=== PATIENT | female | born 1985 | race Hispanic/Latino ===

== ENCOUNTER 2019-11-25 21:24 | Observation (INO) | payer OTHER ==
[2019-11-25 23:26] LABS: #Lymphocytes 1.4 thou/uL (1.20-3.40); #Monocytes 0.4 thou/uL (0.11-0.59); #Neutrophils 6.9 thou/uL (1.40-6.50); %Eosinophils 0.2 % (0.0-10.0); %Lymphocytes 16.4 % (21.0-51.0); %Monocytes 4.3 % (0.0-10.0); Hemoglobin 12.9 g/dL (12.0-16.0); Mean Corpuscular HGB CONC 32.2 g/dL (32.0-36.0); Mean Corpuscular Hemoglobin 28.1 pg (27.0-31.0); Mean Corpuscular Volume 87.3 fL (78.0-98.0); Mean Platelet Volume 7.6 fL (7.4-10.4); Platelet Count 257 thou/uL (130-400); RBC Distribution Width 12.4 % (11.5-14.5); White Blood Cell (WBC) Count 8.7 thou/uL (4.8-10.8)
[2019-11-25 23:47] LABS: ALT (SGPT) 12 U/L (8-55); AST (SGOT) 13 U/L (5-34); Albumin 4.1 g/dL (3.5-5.0); Alkaline Phosphatase 55 U/L (40-110); Anion Gap 12 mmol/L (10-20); BUN (Urea Nitrogen) 11 mg/dL (7.0-18.7); Bilirubin, Total 0.3 mg/dL (0.2-1.2); Calc. Creatinine Clearance 0 mL/min (70-130); Calcium 9.9 mg/dL (7.8-10.44); Carbon Dioxide 25 mmol/L (22-29); Chloride 104 mmol/L (98-107); Estimated GFR-MDRD Greater than 90; Glucose 115 mg/dL (70-105); Potassium 4.2 mmol/L (3.5-5.1); Protein, Total 7.1 g/dL (6.0-8.3); Sodium 137 mmol/L (136-145)
[2019-11-25] MEDS ORDERED: Magnesium 2 GM/50 ML BAG (IN WATER) ONE (23:52)
[2019-11-25] MEDS ORDERED: Metoclopramide HCl 10 MG/2 ML VIAL ONE (23:53)
[2019-11-25] MEDS ORDERED: Ketorolac Tromethamine 30 MG/ML VIAL ONE (23:53)
[2019-11-25] MEDS ORDERED: diphenhydrAMINE 50 MG/ML VIAL ONE (23:53)
[2019-11-25] MEDS ORDERED: Dexamethasone 10 MG/ML VIAL ONE (23:57)
--- NOTE | 2019-11-26 00:29 | CT ---
CT HEAD WITHOUT CONTRAST: Date: 11/25/2019 INDICATION: Headache. COMPARISON: CT head of 04/15/2019. FINDINGS: Ventricles have normal size and position. No evidence of intracranial hemorrhage. No evidence of mass or edema. Sinuses and mastoids are well aerated and clear. IMPRESSION: No acute abnormality identified. POS: AGW
[2019-11-26 01:27] VITALS: BMI 38.1
[2019-11-26] MEDS ORDERED: Ondansetron ODT 4 MG TAB SL PRN (01:27)
[2019-11-26] MEDS ORDERED: Ondansetron PF 4 MG/2 ML Vial IVP PRN (01:27)
[2019-11-26] MEDS ORDERED: Senokot S 8.6-50 MG TAB PO PRN (01:31)
[2019-11-26] MEDS ORDERED: Acetaminophen 325 MG TAB PO PRN (01:31)
[2019-11-26] MEDS: Sodium Chloride 0.9% 1,000 ML IV SCH ×2 (01:50→10:59)
[2019-11-26] MEDS ORDERED: tiZANidine HCl 4 MG TAB PO PRN (02:16)
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
[2019-11-26 04:58] LABS: #Lymphocytes 0.6 thou/uL (1.20-3.40); #Monocytes 0.1 thou/uL (0.11-0.59); #Neutrophils 6.1 thou/uL (1.40-6.50); %Eosinophils 0.1 % (0.0-10.0); %Lymphocytes 9.1 % (21.0-51.0); %Monocytes 1.1 % (0.0-10.0); %Neutrophils 89.8 % (42.0-75.0); Hemoglobin 11.9 g/dL (12.0-16.0); Mean Corpuscular HGB CONC 31.9 g/dL (32.0-36.0); Mean Corpuscular Hemoglobin 27.5 pg (27.0-31.0); Mean Corpuscular Volume 86.1 fL (78.0-98.0); Mean Platelet Volume 7.8 fL (7.4-10.4); Platelet Count 237 thou/uL (130-400); RBC Distribution Width 12.4 % (11.5-14.5); Red Blood Cell (RBC) Count 4.31 mill/uL (4.20-5.40); White Blood Cell (WBC) Count 6.8 thou/uL (4.8-10.8)
[2019-11-26 05:16] LABS: Anion Gap 11 mmol/L (10-20); BUN (Urea Nitrogen) 9 mg/dL (7.0-18.7); Calc. Creatinine Clearance 190 mL/min (70-130); Calcium 8.8 mg/dL (7.8-10.44); Carbon Dioxide 23 mmol/L (22-29); Chloride 105 mmol/L (98-107); Estimated GFR-MDRD Greater than 90; Glucose 167 mg/dL (70-105); Potassium 4.5 mmol/L (3.5-5.1); Sodium 134 mmol/L (136-145)
[2019-11-26] MEDS ORDERED: Ketorolac Tromethamine 30 MG/ML VIAL IVP PRN (06:00)
[2019-11-26] MEDS ORDERED: Famotidine 20 MG TAB PO SCH (09:00)
[2019-11-26] MEDS: Aspirin/APAP/Caffeine Tab (Excedrin Migraine) PO PRN ×2 (10:57→16:13)
[2019-11-26 12:11] VITALS: TEMP 98.5
[2019-11-26 16:14] VITALS: BP 133/88
--- NOTE | 2019-11-27 00:54 | DIS ---
DATE OF ADMISSION: 11/26/2019 DATE OF DISCHARGE: 11/26/2019 HOSPITAL COURSE: Ms. Novak is a 34-year-old female with a medical history of chronic back pain, status post epidural injection, who presents with acute headache. She was diagnosed with post dural puncture headache. The patient was evaluated by Anesthesiology and was informed that an additional blood patch would not be indicated at this point. The patient was started on Excedrin and her headache improved. She was able to sit and walk with minimal headache. She was discharged hemodynamically stable and complaining of only minimal headache. Follow up appointments with her primary care physician and Pain Management. The patient was informed that her blood glucose levels were elevated as inpatient, follow up with her primary care physician regarding workup of hyperglycemia. PHYSICAL EXAMINATION: VITAL SIGNS: Blood pressure 125/78, pulse 77, respiratory rate 16, oxygen saturation 99% on room air, and temperature 98.5 Fahrenheit. GENERAL: Lying comfortably in bed, alert. HEENT: Normocephalic and atraumatic. EOMI. PERRL. CARDIAC: Regular rate and rhythm. No murmurs, gallops, or rubs. LUNGS: Clear to auscultation bilaterally. No wheezing, rales, or rhonchi. ABDOMEN: Nontender and nondistended. Normal bowel sounds. EXTREMITIES: No edema. Strength 5/5 throughout upper and lower extremities. Sensation grossly intact. Cranial nerves grossly intact. PSYCHIATRIC: Proper mood and affect. Alert and oriented x3. MEDICATION LIST: New medications, Excedrin one tablet t.i.d. p.r.n. headaches. Old medications, no old medications. Modified medications, no modified medications. Discontinued medications, no discontinued medications. Job ID: [id number]
== END 2019-11-26 17:11 | disposition home or self-care (01) ==
LOC: ERS 21:24 → 2SE 11-26 00:28
PROVIDERS: ADMIT Family Medicine; ATTEND Family Medicine
DX: R51 Headache (principal); M50.20 Other cervical disc displacement, unspecified cervical region; M51.26 Other intervertebral disc displacement, lumbar region; Z88.0 Allergy status to penicillin
CPT/HCPCS: 36415; 70450; 80048; 80053; 85025; 96361; 96365; 96375; G0378; J1100; J1200; J1885; J2765; J3475

== ENCOUNTER 2021-08-08 15:46 | Outpatient (CLI) | payer OTHER | END 2021-08-08 15:47 | disposition home or self-care (01) | LOC: ULT 15:46 | PROVIDERS: ATTEND Internal Medicine Nephrology | DX: N18.1 Chronic kidney disease, stage 1 (principal); Q61.9 Cystic kidney disease, unspecified | CPT/HCPCS: 76770 ==